=== PATIENT | female | born 1955 | race Caucasian/White ===

== ENCOUNTER 2017-10-05 12:01 | Emergency (ER) | payer MEDICAID ==
[~2017-10-05 12:01] MED LIST: AMBI10TA PO; DEPA500T3 PO; NEUR100C PO; OLAN15 PO; OLAN5 PO; PATA0.2S EACH EYE; PROM25TA5 PO; TRAZ50TA4 PO; XANA1TAB6 PO
[2017-10-05 12:07] VITALS: BP 116/68; PULSE 108; RESP 20; TEMP 98.2; O2SAT 99
[2017-10-05 12:40] VITALS: BP 121/77; PULSE 94; RESP 19; O2SAT 99
[2017-10-05] MEDS ORDERED: AMBI10TA PO (12:42)
[2017-10-05] MEDS ORDERED: TRAZ100T10 PO (12:42)
[2017-10-05] MEDS ORDERED: XANA1TAB2 PO (12:42)
[2017-10-05 13:05] LABS: AUTOMATED NEUTROPHIL # 4.4 TH/MM3 (1.8-7.7); BASOPHIL % 0.4 % (0.0-2.0); EOSINOPHIL # 0.1 TH/MM3 (0-0.4); EOSINOPHIL % 1.3 % (0.0-4.0); HEMATOCRIT 43.2 % (35.0-46.0); HEMOGLOBIN 14.6 GM/DL (11.6-15.3); LYMPH % 33.3 % (9.0-44.0); LYMPHOCYTE # 2.5 TH/MM3 (1.0-4.8); MEAN CELL VOLUME 98.4 FL (80.0-100.0); MEAN CORPUSCULAR HEMOGLOBIN 33.2 PG (27.0-34.0); MEAN CORPUSCULAR HGB CONC 33.7 % (32.0-36.0); MEAN PLATELET VOLUME 8.3 FL (7.0-11.0); MONO % 7.3 % (0.0-8.0); MONOCYTE # 0.6 TH/MM3 (0-0.9); NEUT % 57.7 % (16.0-70.0); PLATELET COUNT 203 TH/MM3 (150-450); RED CELL DISTRIBUTION WIDTH 14.3 % (11.6-17.2); WHITE BLOOD COUNT 7.6 TH/MM3 (4.0-11.0)
[2017-10-05] MEDS ORDERED: SODIUM CHLOR 0.9% 1000 ML INJ 1,000 ML IV ONE ×2 (13:15→14:45)
[2017-10-05 13:21] LABS: ALBUMIN 3.8 GM/DL (3.4-5.0); ALT (GPT) 37 U/L (10-53); AST (GOT) 32 U/L (15-37); BICARBONATE 20.2 MEQ/L (21.0-32.0); BLOOD UREA NITROGEN 17 MG/DL (7-18); CALCIUM 9.1 MG/DL (8.5-10.1); CHLORIDE 107 MEQ/L (98-107); CREATININE 0.93 MG/DL (0.50-1.00); GLOMERULAR FILTRATION RATE 61 ML/MIN (>89); GLUCOSE,RANDOM 112 MG/DL (74-106); MAGNESIUM 1.7 MG/DL (1.5-2.5); SODIUM (NA) 139 MEQ/L (136-145)
[2017-10-05 13:22] LABS: ALKALINE PHOSPHATASE 58 U/L (45-117); TOTAL BILIRUBIN ADULT 0.3 MG/DL (0.2-1.0); TOTAL PROTEIN 7.4 GM/DL (6.4-8.2)
--- NOTE | 2017-10-05 15:41 | PD ---
HPI Chief Complaint: Medical Clearance Time Seen by Provider: 12:57 Travel History International Travel<30 days: No Contact w/Intl Traveler<30days: No Traveled to known affect area: No History of Present Illness HPI 61-year-old female states that she was watching Dr. lujan and when it listed the symptoms of chronic fatigue she noticed that she had all of them. She states she is concerned because she's been very fatigued over the past couple of days. She denies any other concurrent complaints at this time. She is a very poor historian and has history she states of bipolar and OCD and continues to state the above when you ask her other questions. PFSH Past Medical History ADHD: Yes Arthritis: Yes Asthma: Yes Autoimmune Disease: No Blood Disorders: No Bipolar Disorder: Yes Anxiety: Yes Depression: Yes Heart Rhythm Problems: No High Cholesterol: No Chemotherapy: Yes (HEP C AND COLON CA) Chest Pain: No Congestive Heart Failure: No COPD: No Cerebrovascular Accident: No Diminished Hearing: No Endocrine: No Gastrointestinal Disorders: Yes (possible surgery needed for bowel problems) GERD: No Glaucoma: No Genitourinary: Yes (UTI/PROLAPSED BLADDER?SOME INCONTINANCE) Hepatitis: Yes (HEP C) Hiatal Hernia: No Hypertension: No Immune Disorder: No Kidney Stones: No Musculoskeletal: No Neurologic: Yes (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) Reproductive: No Respiratory: No Immunizations Current: Yes Migraines: No Myocardial Infarction: No Radiation Therapy: No Renal Failure: No Sickle Cell Disease: No Sleep Apnea: No Thyroid Disease: No Ulcer: No ?: Not Menopausal: Yes : 6 Para: 3 Miscarriage: 0 : 3 Ovarian Cysts: Yes Tubal Ligation: Yes (19 YR AGO) Past Surgical History Abdominal Surgery: Yes (APPENDECTOMY) AICD: No Appendectomy: Yes (AT AGE 11) Arteriovenous Shunt: No Cardiac Surgery: No Section: Yes Cholecystectomy: No Ear Surgery: No Endocrine Surgery: No Eye Surgery: No Genitourinary Surgery: No Gynecologic Surgery: Yes () Insulin Pump: No Joint Replacement: No Oral Surgery: No Pacemaker: No Thoracic Surgery: No Other Surgery: Yes Social History Alcohol Use: Yes (HEAVILY) Tobacco Use: Yes (1/2 PPD) Substance Use: No (Patient denies. Son states abuses meds if can get them.) Allergies-Medications (Allergen,Severity, Reaction): Coded Allergies: No Known Allergies (Unverified , 12/24/15) Reported Meds & Prescriptions Reported Meds & Active Scripts Active Reported Trazodone (Trazodone HCl) 100 Mg Tablet 200 Mg PO HS Xanax (Alprazolam) 1 Mg Tab 1 Mg PO Q6HR PRN Ambien (Zolpidem Tartrate) 10 Mg Tab 10 Mg PO HS PRN Review of Systems ROS Limitations: Poor Historian Physical Exam Exam Limitations: Poor Historian Narrative GENERAL: Well-nourished, well-developed patient. SKIN: Warm and dry. HEAD: Normocephalic and atraumatic. EYES: No injection or drainage. ENT: No nasal drainage noted. NECK: Supple, trachea midline. CARDIOVASCULAR: Regular rate and rhythm RESPIRATORY: Breath sounds equal bilaterally. No accessory muscle use. GASTROINTESTINAL: Abdomen soft, non-tender, nondistended. EXTREMITIES: No edema. NEUROLOGICAL: Awake. Motor and sensory grossly within normal limits. Normal speech. Data Data Last Documented VS Vital Signs Date Time Temp Pulse Resp B/P (MAP) Pulse Ox O2 Delivery O2 Flow Rate FiO2 10/05/17 12:40 94 19 121/77 (92) 99 10/05/17 12:07 98.2 Orders Orders Magnesium (Mg) (10/05/17 12:37) Phosphorus (Po4) (10/05/17 12:37) Complete Blood Count With Diff (10/05/17 12:37) Comprehensive Metabolic Panel (10/05/17 12:37) Urinalysis - C+S If Indicated (10/05/17 12:37) Iv Access Insert/Monitor (10/05/17 12:37) Ecg Monitoring (10/05/17 12:37) Oximetry (10/05/17 12:37) Drug Screen, Random Urine (10/05/17 12:37) Sodium Chlor 0.9% 1000 Ml Inj (Ns 1000 M (10/05/17 13:15) Sodium Chlor 0.9% 1000 Ml Inj (Ns 1000 M (10/05/17 14:45) Ed Discharge Order (10/05/17 17:00) Labs Laboratory Tests Test 10/05/17 12:55 10/05/17 16:15 White Blood Count 7.6 TH/MM3 Red Blood Count 4.40 MIL/MM3 Hemoglobin 14.6 GM/DL Hematocrit 43.2 % Mean Corpuscular Volume 98.4 FL Mean Corpuscular Hemoglobin 33.2 PG Mean Corpuscular Hemoglobin Concent 33.7 % Red Cell Distribution Width 14.3 % Platelet Count 203 TH/MM3 Mean Platelet Volume 8.3 FL Neutrophils (%) (Auto) 57.7 % Lymphocytes (%) (Auto) 33.3 % Monocytes (%) (Auto) 7.3 % Eosinophils (%) (Auto) 1.3 % Basophils (%) (Auto) 0.4 % Neutrophils # (Auto) 4.4 TH/MM3 Lymphocytes # (Auto) 2.5 TH/MM3 Monocytes # (Auto) 0.6 TH/MM3 Eosinophils # (Auto) 0.1 TH/MM3 Basophils # (Auto) 0.0 TH/MM3 CBC Comment DIFF FINAL Differential Comment Blood Urea Nitrogen 17 MG/DL Creatinine 0.93 MG/DL Random Glucose 112 MG/DL Total Protein 7.4 GM/DL Albumin 3.8 GM/DL Calcium Level 9.1 MG/DL Phosphorus Level 3.0 MG/DL Magnesium Level 1.7 MG/DL Alkaline Phosphatase 58 U/L Aspartate Amino Transf (AST/SGOT) 32 U/L Alanine Aminotransferase (ALT/SGPT) 37 U/L Total Bilirubin 0.3 MG/DL Sodium Level 139 MEQ/L Potassium Level 4.5 MEQ/L Chloride Level 107 MEQ/L Carbon Dioxide Level 20.2 MEQ/L Anion Gap 12 MEQ/L Estimat Glomerular Filtration Rate 61 ML/MIN Urine Color LIGHT-YELLOW Urine Turbidity CLEAR Urine pH 5.0 Urine Specific [place] 1.012 Urine Protein NEG mg/dL Urine Glucose (UA) NEG mg/dL Urine Ketones NEG mg/dL Urine Occult Blood NEG Urine Nitrite NEG Urine Bilirubin NEG Urine Urobilinogen LESS THAN 2.0 MG/DL Urine Leukocyte Esterase NEG Urine WBC LESS THAN 1 /hpf Urine Bacteria RARE /hpf Urine Mucus FEW /lpf Microscopic Urinalysis Comment CULT NOT INDICATED Urine Opiates Screen NEG Urine Barbiturates Screen NEG Urine Amphetamines Screen NEG Urine Benzodiazepines Screen POS Urine Cocaine Screen NEG Urine Cannabinoids Screen NEG MDM Medical Decision Making Medical Screen Exam Complete: Yes Emergency Medical Condition: Yes Medical Record Reviewed: Yes (past history confirmed) Interpretation(s) CBC & BMP Diagram 10/05/17 12:55 Total Protein 7.4, Albumin 3.8, Calcium Level 9.1, Phosphorus Level 3.0, Magnesium Level 1.7, Alkaline Phosphatase 58, Aspartate Amino Transf (AST/SGOT) 32, Alanine Aminotransferase (ALT/SGPT) 37, Total Bilirubin 0.3 Differential Diagnosis Anemia, UTI, renal insufficiency, electrolyte abnormality Narrative Course We'll check basic blood work, urinalysis and dose with IV fluids labs, ua without emergent findings, patient without suicidal ideation, Patient denies any new complaints and states that they are feeling better. Patient happy with care, all questions answered. Patient knows that follow up is incumbent on them and to return to the emergency room immediately if new or worsening symptoms develop. Patient given strict return precautions, vitals reviewed and are normal, agrees to further workup as an outpatient. Diagnosis Primary Impression: General weakness Patient Instructions: General Instructions Additional Instructions: return as needed, follow with primary this week Med/Other Pt SpecificInfo: No Change to Meds Disposition: 01 DISCHARGE HOME Condition: Stable Yadira Bojorquez MD Oct 05, 2017 15:41
[2017-10-05 16:45] LABS: BACTERIA, URINE RARE /hpf; BILIRUBIN, URINE NEG (NEG); BLOOD, URINE NEG (NEG); GLUCOSE,URINE NEG (NEG); KETONE, URINE NEG (NEG); MUCUS URINE FEW /lpf (OCC); NITRITE,URINE NEG (NEG); URINE COLOR LIGHT-YELLOW (YELLW/STRAW); URINE LEUKOCYTE ESTERASE NEG (NEG)
== END 2017-10-05 17:46 | disposition home or self-care (01) ==
LOC: NEPE 12:01
DX: R53.1 Weakness (principal); F31.9 Bipolar disorder, unspecified; F17.200 Nicotine dependence, unspecified, uncomplicated; B19.20 Unspecified viral hepatitis C without hepatic coma; Z79.899 Other long term (current) drug therapy
CPT/HCPCS: 80053; 80307; 81001; 83735; 84100; 85025; 96360; 99282; J7030

== ENCOUNTER 2017-12-16 18:57 | Emergency (ER) | payer MEDICAID ==
[~2017-12-16] VITALS: Ht 160 cm; Wt 70.0 kg
[~2017-12-16 18:57] MED LIST changes: -DEPA500T3 PO; -NEUR100C PO; -OLAN15 PO; -OLAN5 PO; -PATA0.2S EACH EYE; -PROM25TA5 PO; +TRAZ100T10 PO; -TRAZ50TA4 PO; +XANA1TAB2 PO; -XANA1TAB6 PO
[2017-12-16 19:18] VITALS: BP 157/100; PULSE 85; RESP 16; TEMP 97.8; O2SAT 97
[2017-12-17] MEDS ORDERED: PROM25TA10 PO (01:01)
--- NOTE | 2017-12-17 01:17 | PD ---
HPI Chief Complaint: Psychiatric Symptoms Time Seen by Provider: 01:16 Travel History International Travel<30 days: No Contact w/Intl Traveler<30days: No Traveled to known affect area: No History of Present Illness HPI 62-year-old female presents requesting psychiatric evaluation. She reports that recently she ran out of her trazodone and Xanax. She reports that recently she was fired from her psychiatrist. Today she was drinking vodka and at some point someone brought her here. She is uncertain who brought her here. She reports feeling overwhelmed and depressed. She denies any suicidal homicidal thoughts. She denies any hallucinations or illicit drug use. She has no other complaints at this time. PFS Past Medical History ADHD: Yes Arthritis: Yes Asthma: Yes Autoimmune Disease: No Blood Disorders: No Bipolar Disorder: Yes Anxiety: Yes Depression: Yes Heart Rhythm Problems: No High Cholesterol: No Chemotherapy: Yes (HEP C AND COLON CA) Chest Pain: No Congestive Heart Failure: No COPD: No Cerebrovascular Accident: No Diminished Hearing: No Endocrine: No Gastrointestinal Disorders: Yes (possible surgery needed for bowel problems) GERD: No Glaucoma: No Genitourinary: Yes (UTI/PROLAPSED BLADDER?SOME INCONTINANCE) Hepatitis: Yes (HEP C) Hiatal Hernia: No Hypertension: No Immune Disorder: No Kidney Stones: No Musculoskeletal: No Neurologic: Yes (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) Reproductive: No Respiratory: No Immunizations Current: Yes Migraines: No Myocardial Infarction: No Radiation Therapy: No Renal Failure: No Sickle Cell Disease: No Sleep Apnea: No Thyroid Disease: No Ulcer: No Tetanus Vaccination: Unknown Influenza Vaccination: No Menopausal: Yes : 6 Para: 3 Miscarriage: 0 : 3 Ovarian Cysts: Yes Tubal Ligation: Yes (19 YR AGO) Past Surgical History Abdominal Surgery: Yes (APPENDECTOMY) AICD: No Appendectomy: Yes (AT AGE 11) Arteriovenous Shunt: No Cardiac Surgery: No Section: Yes Cholecystectomy: No Ear Surgery: No Endocrine Surgery: No Eye Surgery: No Genitourinary Surgery: No Gynecologic Surgery: Yes () Insulin Pump: No Joint Replacement: No Oral Surgery: No Pacemaker: No Thoracic Surgery: No Other Surgery: Yes Social History Alcohol Use: Yes (HEAVILY) Tobacco Use: Yes (1/2 PPD) Substance Use: No (Patient denies. Son states abuses meds if can get them.) Allergies-Medications (Allergen,Severity, Reaction): Coded Allergies: No Known Allergies (Unverified Adverse Reaction, Unknown, 12/16/17) Reported Meds & Prescriptions Reported Meds & Active Scripts Active Reported Phenergan (Promethazine HCl) 25 Mg Tablet 25 Mg PO ONCE Trazodone (Trazodone HCl) 100 Mg Tablet 200 Mg PO HS Xanax (Alprazolam) 1 Mg Tab 1 Mg PO Q6HR PRN Ambien (Zolpidem Tartrate) 10 Mg Tab 10 Mg PO HS PRN Review of Systems Except as stated in HPI: all other systems reviewed are Neg Physical Exam Narrative GENERAL: Well-developed well-nourished female who appears anxious and restless. SKIN: Warm and dry. HEAD: Atraumatic. Normocephalic. EYES: Pupils equal and round. No scleral icterus. No injection or drainage. ENT: No nasal bleeding or discharge. Mucous membranes pink and moist. NECK: Trachea midline. No JVD. CARDIOVASCULAR: Regular rate and rhythm. No murmur appreciated. RESPIRATORY: No accessory muscle use. Clear to auscultation. Breath sounds equal bilaterally. GASTROINTESTINAL: Abdomen soft, non-tender, nondistended. Hepatic and splenic margins not palpable. MUSCULOSKELETAL: No obvious deformities. No clubbing. No cyanosis. No edema. NEUROLOGICAL: Awake and alert. No obvious cranial nerve deficits. Motor grossly within normal limits. Normal speech. PSYCHIATRIC: Depressed, anxious, restless; insight and judgment limited Data Data Last Documented VS Vital Signs Date Time Temp Pulse Resp B/P (MAP) Pulse Ox O2 Delivery O2 Flow Rate FiO2 12/16/17 19:18 97.8 85 16 157/100 (119) 97 Orders Orders Complete Blood Count With Diff (12/17/17 01:16) Comprehensive Metabolic Panel (12/17/17 01:16) Thyroid Stimulating Hormone (12/17/17 01:16) Psych Screen (12/17/17 01:16) Drug Screen, Random Urine (12/17/17 01:16) Alcohol (Ethanol) (12/17/17 01:16) Labs Laboratory Tests Test 12/17/17 01:15 White Blood Count 8.0 TH/MM3 Red Blood Count 4.64 MIL/MM3 Hemoglobin 15.1 GM/DL Hematocrit 43.8 % Mean Corpuscular Volume 94.4 FL Mean Corpuscular Hemoglobin 32.6 PG Mean Corpuscular Hemoglobin Concent 34.5 % Red Cell Distribution Width 12.5 % Platelet Count 255 TH/MM3 Mean Platelet Volume 7.7 FL Neutrophils (%) (Auto) 69.2 % Lymphocytes (%) (Auto) 23.1 % Monocytes (%) (Auto) 7.0 % Eosinophils (%) (Auto) 0.4 % Basophils (%) (Auto) 0.3 % Neutrophils # (Auto) 5.5 TH/MM3 Lymphocytes # (Auto) 1.8 TH/MM3 Monocytes # (Auto) 0.6 TH/MM3 Eosinophils # (Auto) 0.0 TH/MM3 Basophils # (Auto) 0.0 TH/MM3 CBC Comment DIFF FINAL Differential Comment Blood Urea Nitrogen 10 MG/DL Creatinine 0.72 MG/DL Random Glucose 118 MG/DL Total Protein 8.6 GM/DL Albumin 4.5 GM/DL Calcium Level 9.1 MG/DL Alkaline Phosphatase 73 U/L Aspartate Amino Transf (AST/SGOT) 104 U/L Alanine Aminotransferase (ALT/SGPT) 83 U/L Total Bilirubin 0.6 MG/DL Sodium Level 139 MEQ/L Potassium Level 4.3 MEQ/L Chloride Level 103 MEQ/L Carbon Dioxide Level 27.2 MEQ/L Anion Gap 9 MEQ/L Estimat Glomerular Filtration Rate 82 ML/MIN Thyroid Stimulating Hormone 3rd Gen 0.265 uIU/ML Ethyl Alcohol Level 8 MG/DL [facility] Medical Decision Making Medical Screen Exam Complete: Yes Emergency Medical Condition: Yes Medical Record Reviewed: Yes Differential Diagnosis Bipolar disorder, substance-induced mood disorder, acute psychosis, adjustment reaction Narrative Course Mental health screening discussed with the patient. Psychiatric screen ordered. AST is 104, ALT 83, TSH 0.265, alcohol level 8. The patient is medically cleared for psychiatric disposition. Diagnosis Primary Impression: Medical clearance for psychiatric admission Danilo Huerta Dec 17, 2017 01:17
[2017-12-17 01:55] LABS: AUTOMATED NEUTROPHIL # 5.5 TH/MM3 (1.8-7.7); BASOPHIL % 0.3 % (0.0-2.0); EOSINOPHIL % 0.4 % (0.0-4.0); HEMATOCRIT 43.8 % (35.0-46.0); HEMOGLOBIN 15.1 GM/DL (11.6-15.3); LYMPH % 23.1 % (9.0-44.0); LYMPHOCYTE # 1.8 TH/MM3 (1.0-4.8); MEAN CELL VOLUME 94.4 FL (80.0-100.0); MEAN CORPUSCULAR HEMOGLOBIN 32.6 PG (27.0-34.0); MEAN CORPUSCULAR HGB CONC 34.5 % (32.0-36.0); MEAN PLATELET VOLUME 7.7 FL (7.0-11.0); MONOCYTE # 0.6 TH/MM3 (0-0.9); NEUT % 69.2 % (16.0-70.0); PLATELET COUNT 255 TH/MM3 (150-450); RED BLOOD COUNT 4.64 MIL/MM3 (4.00-5.30); RED CELL DISTRIBUTION WIDTH 12.5 % (11.6-17.2)
[2017-12-17 03:14] LABS: ALBUMIN 4.5 GM/DL (3.4-5.0); ALT (GPT) 83 U/L (10-53); AST (GOT) 104 U/L (15-37); BICARBONATE 27.2 MEQ/L (21.0-32.0); BLOOD UREA NITROGEN 10 MG/DL (7-18); CALCIUM 9.1 MG/DL (8.5-10.1); CHLORIDE 103 MEQ/L (98-107); CREATININE 0.72 MG/DL (0.50-1.00); GLOMERULAR FILTRATION RATE 82 ML/MIN (>89); GLUCOSE,RANDOM 118 MG/DL (74-106); SODIUM (NA) 139 MEQ/L (136-145)
[2017-12-17 03:21] LABS: ALKALINE PHOSPHATASE 73 U/L (45-117); TOTAL BILIRUBIN ADULT 0.6 MG/DL (0.2-1.0); TOTAL PROTEIN 8.6 GM/DL (6.4-8.2)
[2017-12-17 07:38] VITALS: BP 146/90; PULSE 85; RESP 18; O2SAT 99
--- NOTE | 2017-12-17 16:16 | PD.PSY.CON ---
Provisional Diagnosis Admission Date [place] I. Benzodiazepine abuse history alcohol abuse history of mood disorder History of Present Illness Service Psychiatry Consult Requested By EDNE Reason for Consult Choudhury act assessment Primary Care Physician Ted Gardiner D.O. HPI is a 62 her white female comes here voluntarily asking for psychiatric assessment. It appears patient has been patient of Dr. Reji quintanilla. He dismissed her from his practice due to her noncompliance medication and perhaps alcohol use and misuse of benzodiazepines. Patient states she has been attempting to find another psychiatrist for a month. It appears they have decline to accept her in their practices. She comes here for referral of Xanax and Ativan. She is threatening to use alcohol she does not get the benzodiazepines. Acknowledges that she is an alcoholic. Though blood alcohol level today was only 8 with a negative toxicology. Patient denies suicidality homicidality voices or visions. However she is somewhat tremulous. Disorder feel patient does not meet Choudhury act criteria. I feel she does not meet criteria for an acute psychiatric hospitalization. However she may be showing some withdrawal symptoms from the benzodiazepines attributable medical issue in a medical assessment. I am referring the patient back to the medical side of the emergency department for further care and attention the been no recommendations for medication by me at this time Review of Systems Constitutional: DENIES: Diaphoretic episodes, Fatigue, Fever, Weight gain, Weight loss, Chills, Dizziness, Change in appetite, Night Sweats Endocrine: DENIES: Abnorml menstrual pattern, Heat/cold intolerance, Polydipsia , Polyuria, Polyphagia Eyes: DENIES: Blurred vision, Diplopia, Eye inflammation, Eye pain, Vision loss , Photosensitivity, Double Vision Ears, nose, mouth, throat: DENIES: Tinnitus, Hearing loss, Vertigo, Nasal discharge, Oral lesions, Throat pain, Hoarseness, Ear Pain, Running Nose, Epistaxis, Sinus Pain, Toothache, Odynophagia Respiratory: DENIES: Apneas, Cough, Snoring, Wheezing, Hemoptysis, Sputum production, Shortness of breath Cardiovascular: DENIES: Chest pain, Palpitations, Syncope, Dyspnea on Exertion , PND, Lower Extremity Edema, Orthopnea, Claudication Gastrointestinal: DENIES: Abdominal pain, Black stools, Bloody stools, Constipation, Diarrhea, Nausea, Vomiting, Difficulty Swallowing, Anorexia Genitourinary: DENIES: Abnormal vaginal bleeding, Dysmenorrhea, Dyspareunia, Sexual dysfunction, Urinary frequency, Urinary incontinence, Urgency, Hematuria , Dysuria, Nocturia, Vaginal discharge Musculoskeletal: DENIES: Joint pain, Muscle aches, Stiffness, Joint Swelling, Back pain, Neck pain Integumentary: DENIES: Abnormal pigmentation, Pruritus, Rash, Nail changes, Breast masses, Breast skin changes, Nipple discharge Hematologic/lymphatic: DENIES: Bruising, Lymphadenopathy Immunologic/allergic: DENIES: Eczema, Urticaria Neurologic: COMPLAINS OF: Tremor Psychiatric: COMPLAINS OF: Anxiety Past Family Social History Coded Allergies: No Known Allergies (Unverified Adverse Reaction, Unknown, 12/16/17) Reported Medications Promethazine (Phenergan) 25 Mg Tablet, 25 MG PO ONCE for Nausea/Vomiting, #1 TAB 0 Refills 12/17/17 Trazodone (Trazodone) 100 Mg Tablet, 200 MG PO HS for Control Depression, #30 TAB 0 Refills 10/05/17 Alprazolam (Xanax) 1 Mg Tab, 1 MG PO Q6HR Y for ANXIETY, TAB 0 Refills 10/05/17 Zolpidem (Ambien) 10 Mg Tab, 10 MG PO HS Y for INSOMNIA, TAB 0 Refills 10/05/17 Social History Patient lives with friend. Patient's Strengths (min. 2) Patient able [facility] patient cooperative Physical Exam Patient to be referred back to the emergency department for further assessment patient's possible withdrawal symptoms Vital Signs Vital Signs Date Time Temp Pulse Resp B/P (MAP) Pulse Ox O2 Delivery O2 Flow Rate FiO2 12/17/17 07:38 85 18 146/90 (108) 99 12/16/17 19:18 97.8 Lab Results Test 12/17/17 01:15 12/17/17 06:00 White Blood Count 8.0 TH/MM3 Red Blood Count 4.64 MIL/MM3 Hemoglobin 15.1 GM/DL Hematocrit 43.8 % Mean Corpuscular Volume 94.4 FL Mean Corpuscular Hemoglobin 32.6 PG Mean Corpuscular Hemoglobin Concent 34.5 % Red Cell Distribution Width 12.5 % Platelet Count 255 TH/MM3 Mean Platelet Volume 7.7 FL Neutrophils (%) (Auto) 69.2 % Lymphocytes (%) (Auto) 23.1 % Monocytes (%) (Auto) 7.0 % Eosinophils (%) (Auto) 0.4 % Basophils (%) (Auto) 0.3 % Neutrophils # (Auto) 5.5 TH/MM3 Lymphocytes # (Auto) 1.8 TH/MM3 Monocytes # (Auto) 0.6 TH/MM3 Eosinophils # (Auto) 0.0 TH/MM3 Basophils # (Auto) 0.0 TH/MM3 CBC Comment DIFF FINAL Differential Comment Blood Urea Nitrogen 10 MG/DL Creatinine 0.72 MG/DL Random Glucose 118 MG/DL Total Protein 8.6 GM/DL Albumin 4.5 GM/DL Calcium Level 9.1 MG/DL Alkaline Phosphatase 73 U/L Aspartate Amino Transf (AST/SGOT) 104 U/L Alanine Aminotransferase (ALT/SGPT) 83 U/L Total Bilirubin 0.6 MG/DL Sodium Level 139 MEQ/L Potassium Level 4.3 MEQ/L Chloride Level 103 MEQ/L Carbon Dioxide Level 27.2 MEQ/L Anion Gap 9 MEQ/L Estimat Glomerular Filtration Rate 82 ML/MIN Thyroid Stimulating Hormone 3rd Gen 0.265 uIU/ML Ethyl Alcohol Level 8 MG/DL Urine Opiates Screen NEG Urine Barbiturates Screen NEG Urine Amphetamines Screen NEG Urine Benzodiazepines Screen NEG Urine Cocaine Screen NEG Urine Cannabinoids Screen NEG Mental Status Examination Appearance: Disheveled Consciousness: Alert Orientation: Person Motor Activity: Other (tremulous) Speech: Rapid, Stuttering Language: Adequate Fund of Knowledge: Inadequate Attention and Concentration: Easily Distracted Memory: Impaired Mood: Anxious, Irritable Affect: Other (increase range and intensity) Thought Process & Associations: Loose associations Thought Content: Other (somewhat disorganized) Hallucination Type: None Delusion Type: None Suicidal Ideation: No Suicidal Plan: No Suicidal Intention: No Homicidal Ideation: No Homicidal Plan: No Homicidal Intention: No Insight: Fair Judgment: Impulsive Assessment & Plan Problem List: (1) History of alcohol abuse ICD Codes: Z87.898 - Personal history of other specified conditions (2) History of mood disorder ICD Codes: Z86.59 - Personal history of other mental and behavioral disorders (3) Benzodiazepine abuse ICD Codes: F13.10 - Sedative, hypnotic or anxiolytic abuse, uncomplicated Assessment & Plan Estimated LOS: days patient does not meet criteria for acute inpatient psychiatric hospitalization however there is still suspicion on my part of some withdrawal symptoms developing will refer back to the medicine side Discharge Planning To be determined by medicine service Request HC Surrog/Guard Advoc?: No Juan Ramon Warner MD Dec 17, 2017 16:16
[2017-12-17 16:17] VITALS: BP 158/85; PULSE 81; RESP 20; TEMP 97.6; O2SAT 96
[2017-12-17] MEDS ORDERED: CHLO25CA9 PO (16:25)
[2017-12-17] MEDS ORDERED: chlordiazePOXIDE 25 MG CAP PO ONE (16:30)
--- NOTE | 2017-12-17 16:31 | PD ---
Physical Exam Date Seen by Provider: Dec 17, 2017 Time Seen by Provider: 16:26 Narrative 62-year-old female previously medically clear for psychiatric evaluation with question of alcohol withdrawal, and anxiety. Patient stated she was fired by her psychiatrist 1 month ago and ran out of her Xanax and trazodone 1 week ago. Patient was evaluated by our psychiatrist and deemed psychiatrically stable for discharge. Patient was medically evaluated by myself at this time, and felt to be somewhat shaky. She is given Librium 25 mg p.o. now. Patient reviewed with Dr. Lloyd, and she is given an additional prescription for Librium 25 mg up to 3 times daily #6. Patient is instructed to follow-up with [facility] as discussed. Data Data Last Documented VS Vital Signs Date Time Temp Pulse Resp B/P (MAP) Pulse Ox O2 Delivery O2 Flow Rate FiO2 12/17/17 16:17 97.6 81 20 158/85 (109) 96 Orders Orders Complete Blood Count With Diff (12/17/17 01:16) Comprehensive Metabolic Panel (12/17/17 01:16) Thyroid Stimulating Hormone (12/17/17 01:16) Psych Screen (12/17/17 01:16) Drug Screen, Random Urine (12/17/17 01:16) Alcohol (Ethanol) (12/17/17 01:16) Diet Regular Basic (12/17/17 Breakfast) Diet Regular Basic (12/17/17 Lunch) Chlordiazepoxide (Librium) (12/17/17 16:30) Ed Discharge Order (12/17/17 16:25) Labs Laboratory Tests Test 12/17/17 01:15 12/17/17 06:00 White Blood Count 8.0 TH/MM3 Red Blood Count 4.64 MIL/MM3 Hemoglobin 15.1 GM/DL Hematocrit 43.8 % Mean Corpuscular Volume 94.4 FL Mean Corpuscular Hemoglobin 32.6 PG Mean Corpuscular Hemoglobin Concent 34.5 % Red Cell Distribution Width 12.5 % Platelet Count 255 TH/MM3 Mean Platelet Volume 7.7 FL Neutrophils (%) (Auto) 69.2 % Lymphocytes (%) (Auto) 23.1 % Monocytes (%) (Auto) 7.0 % Eosinophils (%) (Auto) 0.4 % Basophils (%) (Auto) 0.3 % Neutrophils # (Auto) 5.5 TH/MM3 Lymphocytes # (Auto) 1.8 TH/MM3 Monocytes # (Auto) 0.6 TH/MM3 Eosinophils # (Auto) 0.0 TH/MM3 Basophils # (Auto) 0.0 TH/MM3 CBC Comment DIFF FINAL Differential Comment Blood Urea Nitrogen 10 MG/DL Creatinine 0.72 MG/DL Random Glucose 118 MG/DL Total Protein 8.6 GM/DL Albumin 4.5 GM/DL Calcium Level 9.1 MG/DL Alkaline Phosphatase 73 U/L Aspartate Amino Transf (AST/SGOT) 104 U/L Alanine Aminotransferase (ALT/SGPT) 83 U/L Total Bilirubin 0.6 MG/DL Sodium Level 139 MEQ/L Potassium Level 4.3 MEQ/L Chloride Level 103 MEQ/L Carbon Dioxide Level 27.2 MEQ/L Anion Gap 9 MEQ/L Estimat Glomerular Filtration Rate 82 ML/MIN Thyroid Stimulating Hormone 3rd Gen 0.265 uIU/ML Ethyl Alcohol Level 8 MG/DL Urine Opiates Screen NEG Urine Barbiturates Screen NEG Urine Amphetamines Screen NEG Urine Benzodiazepines Screen NEG Urine Cocaine Screen NEG Urine Cannabinoids Screen NEG MDM Medical Record Reviewed: Yes Supervised Visit with ALICIA: Yes Narrative Course 62-year-old female previously medically clear for psychiatric evaluation with question of alcohol withdrawal, and anxiety. Patient stated she was fired by her psychiatrist 1 month ago and ran out of her Xanax and trazodone 1 week ago. Patient was evaluated by our psychiatrist and deemed psychiatrically stable for discharge. Patient was medically evaluated by myself at this time, and felt to be somewhat shaky. She is given Librium 25 mg p.o. now. Patient reviewed with Dr. Lloyd, and she is given an additional prescription for Librium 25 mg up to 3 times daily #6. Patient is instructed to follow-up with [facility] as discussed. Diagnosis Primary Impression: Medical clearance for psychiatric admission Additional Impressions: Benzodiazepine withdrawal Qualified Codes: F13.230 - Sedative, hypnotic or anxiolytic dependence with withdrawal, uncomplicated History of alcohol abuse Referrals: [facility] (Out patient) [facility] Patient Instructions: Abuse of Alcohol (ED), General Instructions Additional Instruction: Patient was evaluated by our psychiatrist and deemed psychiatrically stable for discharge. Patient was medically evaluated by myself at this time, and felt to be somewhat shaky. She is given Librium 25 mg p.o. now. Patient reviewed with Dr. Lloyd, and she is given an additional prescription for Librium 25 mg up to 3 times daily #6. Patient is instructed to follow-up with [facility] as discussed. Med/Other Pt SpecificInfo: Prescription(s) given Scripts Chlordiazepoxide HCl (Chlordiazepoxide HCl) 25 Mg Capsule 1 CAP PO TID, #6 Prov: Jonh Lloyd MD 12/17/17 Disposition: 01 DISCHARGE HOME Condition: Stable Nicho Lee Dec 17, 2017 16:31
== END 2017-12-17 16:58 | disposition home or self-care (01) ==
LOC: NEPD 18:57 → NEPJ 12-17 16:58
DX: F13.230 Sedative, hypnotic or anxiolytic dependence with withdrawal, uncomplicated (principal); F41.9 Anxiety disorder, unspecified; F90.9 Attention-deficit hyperactivity disorder, unspecified type; M19.90 Unspecified osteoarthritis, unspecified site; J45.909 Unspecified asthma, uncomplicated; F31.9 Bipolar disorder, unspecified; F17.200 Nicotine dependence, unspecified, uncomplicated; Z86.19 Personal history of other infectious and parasitic diseases; Z79.899 Other long term (current) drug therapy
CPT/HCPCS: 80053; 80307; 84443; 85025; 99283